=== PATIENT | female | born 1970 | race Hispanic/Latino ===

== ENCOUNTER 2025-01-03 07:33 | Day surgery (SDC) | payer MEDICAID ==
[~2025-01-03] VITALS: Ht 152.4 cm; Wt 111.1 kg
[2025-01-03] VITALS (10 sets, daily range): BP systolic 126–157; BP diastolic 73–95; PULSE 60–101; RESP 14–18; TEMP 97.1–98
[2025-01-03] MEDS: 0.9%NACL 1000ML 1,000 ML IV ONE (08:12)
[2025-01-03] MEDS ORDERED: LIDOCAINE PF 100MG/5ML (2%) SYRINGE 5ML ONE (11:04)
== END 2025-01-03 12:35 | disposition home or self-care (01) ==
LOC: DAH 07:33 → ENDO 07:33
PROVIDERS: ATTEND Surgery
DX: K30 Functional dyspepsia (principal); I10 Essential (primary) hypertension; E66.01 Morbid (severe) obesity due to excess calories; K22.89 Other specified disease of esophagus; Z98.84 Bariatric surgery status; Z68.42 Body mass index [BMI] 45.0-49.9, adult
CPT/HCPCS: 43270; J1100; J7030; J2003; J2704 ×2; J2405; A4620; C1726; A4215 ×2; A4223; A4222; A4221; A4663; A4606; J3490